=== PATIENT | female | born 1995 | race Caucasian/White ===

== ENCOUNTER 2018-06-28 06:12 | Emergency (ER) | payer OTHER ==
[~2018-06-28] VITALS: Ht 170.2 cm; Wt 61.2 kg
[2018-06-28 06:18] VITALS: Ht 170.2 cm; Wt 61.2 kg
[2018-06-28 06:51] VITALS: BP 114/62
== END 2018-06-28 06:51 | disposition home or self-care (01) ==
LOC: ED 06:12
DX: S61.032A Puncture wound without foreign body of left thumb without damage to nail, initial encounter (principal); X58.XXXA Exposure to other specified factors, initial encounter; Y93.89 Activity, other specified; Y92.89 Other specified places as the place of occurrence of the external cause; Y99.8 Other external cause status

== ENCOUNTER → 2018-12-29 | Outpatient (REF) | LOC: EH 13:04 ==

== ENCOUNTER 2019-12-28 02:57 | Emergency (ER) | payer OTHER ==
[~2019-12-28] VITALS: Ht 167.6 cm; Wt 68.0 kg
[2019-12-28 03:03] VITALS: Ht 167.6 cm; Wt 68.0 kg
[2019-12-28 04:33] VITALS: BP 106/65
== END 2019-12-28 04:33 | disposition home or self-care (01) ==
LOC: ED 02:57
DX: S61.431A Puncture wound without foreign body of right hand, initial encounter (principal); W46.1XXA Contact with contaminated hypodermic needle, initial encounter; Y93.89 Activity, other specified; Y92.89 Other specified places as the place of occurrence of the external cause; Y99.8 Other external cause status

== ENCOUNTER → 2020-08-12 | Outpatient (CLI) | payer MEDICAID, OTHER ==
[2020-08-12 15:36] LABS: BASOPHIL % 0.3 % (0-2); PLATELET COUNT 214 x10^3mcL (130-400); RED CELL DISTRIBUTION WIDTH 12.4 % (11.5-14.5)
[2020-08-12 16:40] LABS: AMPHETAMINE QUAL UR NONE DETECTED (See below)
[2020-08-13 04:06] LABS: RAPID PLASMA REAGIN Non Reactive (Non Reactive)
== END | disposition home or self-care (01) ==
LOC: LB 14:21
PROVIDERS: ATTEND Obstetrics & Gynecology
DX: Z33.1 Pregnant state, incidental (principal)
CPT/HCPCS: 87491; 87591